=== PATIENT | female | born 1990 | race Caucasian/White ===

== ENCOUNTER 2016-08-22 19:39 | Emergency (ER) | payer SELFPAY ==
[~2016-08-22] VITALS: Ht 167.6 cm; Wt 104.0 kg
[2016-08-22 19:41] VITALS: BP 141/92; PULSE 105; RESP 16; TEMP 98.2; O2SAT 100
--- NOTE | 2016-08-22 19:54 | PD ---
Physical Exam Date Seen by Provider: Aug 22, 2016 Time Seen by Provider: 19:52 Narrative 26 yo female here for evaluation of right arm pain. History of fracture. Took off cast because felt better yesterday. has more pain. Fracture 3 weeks ago. here for pain and recasting. Vitals are stable. Awaiting bed placement. Data Data Last Documented VS Vital Signs Date Time Temp Pulse Resp B/P Pulse Ox O2 Delivery O2 Flow Rate FiO2 08/22/16 19:41 98.2 105 16 141/92 100 Room Air [facility] Medical Record Reviewed: Yes Supervised Visit with MALLIKA: Froilan Cole Aug 22, 2016 19:53
[2016-08-22] MEDS ORDERED: VERA40TA PO (21:25)
[2016-08-22] MEDS ORDERED: oxyCODONE/ACETAMINOPHEN 5 MG/325 MG TAB PO ONE (21:45)
--- NOTE | 2016-08-22 21:53 | PD ---
HPI Chief Complaint: Injury Time Seen by Provider: 21:36 Travel History International Travel<30 days: No Contact w/Intl Traveler<30days: No Traveled to known affect area: No History of Present Illness HPI 26-year-old female here for evaluation of right wrist pain. About 3 weeks ago she was diagnosed with a right distal radius fracture as well as a hand fracture in [place]. She states that she was in a bois forte when she slipped and fell. She was placed in a splint at that time. She has a follow-up appointment with local orthopedic surgeons in one week. Today the patient states that the splint became loose and was bothering her, so she decided to remove it. While doing laundry today she states that her wrist began to hurt significantly. Pain is currently mild to moderate, worse with movement and palpation. PFSH Past Medical History Medical History: Denies Significant Hx ?: Not LMP: 08-04-16 Past Surgical History Other Surgery: Yes (PYLORIC STENOSIS ) Social History Alcohol Use: No Tobacco Use: Yes (1 PPD ) Substance Use: No Allergies-Medications (Allergen,Severity, Reaction): Coded Allergies: No Known Allergies (Unverified , 08/22/16) Reported Meds & Prescriptions Reported Meds & Active Scripts Active Reported Verapamil (Verapamil HCl) 40 Mg Tab 40 Mg PO BID Review of Systems Except as stated in HPI: all other systems reviewed are Neg Physical Exam Narrative GENERAL: Well-developed, well-nourished, sitting comfortably, no apparent distress. SKIN: Focused skin assessment warm/dry. No lacerations, abrasions, or ecchymosis. CARDIOVASCULAR: Regular rate and rhythm. Bilateral distal radial pulses are brisk and equal. MUSCULOSKELETAL: Mild edema to the right distal radius/dorsal hand with limited range of motion in the right wrist secondary to pain. Right hand and fingers are neurovascularly intact with normal capillary refill. NEUROLOGICAL: Awake and alert. No obvious cranial nerve deficits. Motor grossly within normal limits. Normal speech. PSYCHIATRIC: Appropriate mood and affect; insight and judgment normal. Data Data Last Documented VS Vital Signs Date Time Temp Pulse Resp B/P Pulse Ox O2 Delivery O2 Flow Rate FiO2 08/22/16 19:41 98.2 105 16 141/92 100 Room Air Orders Wrist, Complete ([id number]) (08/22/16 ) Oxycodone-Acetamin 5-325 Mg (Percocet (08/22/16 21:45) Splint Or Brace Apply/Monitor (08/22/16 22:07) Ketorolac Inj (Toradol Inj) (08/22/16 22:30) MDM Medical Decision Making Medical Screen Exam Complete: Yes Emergency Medical Condition: Yes Differential Diagnosis Wrist fracture, wrist sprain Narrative Course Right wrist x-ray shows subacute fracture of the distal radius with vertical component extending intra-articular. Patient's right upper extremity is neurovascularly intact, and all compartments are supple. Plan is to place her right upper extremity back into a sugar tong splint. She has a follow-up upon with an orthopedist in one week. She was informed on when to return to the emergency department. She verbalizes understanding and agreement with plan. Diagnosis Primary Impression: Closed fracture of right distal radius Qualified Code: S52.501D - Closed fracture of distal end of right radius with routine healing, unspecified fracture morphology, subsequent encounter Referrals: Orthopedist 1 week Additional Instructions: Follow-up with your orthopedic surgeon in one week as scheduled. Return to the emergency department for worsening symptoms or any other concerns. Scripts Hydrocodone-Acetaminophen (Lortab)5-325 Mg Tab1 Tab PO Q6H PRN (PAIN) #6 TAB Ref 0 Prov:Jose Martin Agarwal MD 08/22/16 Disposition: 01 DISCHARGE HOME Condition: Stable Jose Martin Agarwal MD Aug 22, 2016 21:53
--- NOTE | 2016-08-22 21:59 | RADRPT ---
EXAM DATE/TIME: 08/22/2016 21:53 [facility] COMPARISON: No previous studies available for comparison. INDICATIONS : Right wrist pain, post known fracture 3 weeks. MEDICAL HISTORY : None. SURGICAL HISTORY : None. ENCOUNTER: Initial ACUITY: 3 weeks PAIN SCORE: 5/10 LOCATION: Right wrist. FINDINGS: Healing fracture distal radius in reasonable alignment without splint. CONCLUSION: Subacute fracture distal radius with vertical component extending intra-articular. Westley Lamar MD FACR on August 22, 2016 at 21:57 Board Certified Radiologist. This report was verified electronically.
[2016-08-22] MEDS ORDERED: KETOROLAC TROMETHAMINE 60 MG/2 ML (IM) VIAL IM ONE (22:30)
[2016-08-22] MEDS ORDERED: HYDR-3533 PO (22:35)
== END 2016-08-22 22:39 | disposition home or self-care (01) ==
LOC: NEPD 19:39
DX: S52.501D Unspecified fracture of the lower end of right radius, subsequent encounter for closed fracture with routine healing (principal); F17.200 Nicotine dependence, unspecified, uncomplicated; Z79.899 Other long term (current) drug therapy; W01.0XXD Fall on same level from slipping, tripping and stumbling without subsequent striking against object, subsequent encounter
CPT/HCPCS: 29125; 73110; 96372; 99284; J1885

== ENCOUNTER 2016-10-08 18:57 | Emergency (ER) | payer SELFPAY ==
[~2016-10-08] VITALS: Ht 167.6 cm; Wt 105.0 kg
[~2016-10-08 18:57] MED LIST: HYDR-3533 PO; VERA40TA PO
[2016-10-08 19:00] VITALS: BP 124/86; PULSE 89; RESP 15; TEMP 98.4; O2SAT 99
--- NOTE | 2016-10-08 20:53 | PD ---
HPI Chief Complaint: Injury Time Seen by Provider: 20:42 Travel History International Travel<30 days: No Contact w/Intl Traveler<30days: No Traveled to known affect area: No History of Present Illness HPI 26-year-old female no significant medical history presents to emergency department today for evaluation of a left great toe ingrown toenail. Patient states it has been there for the last 2-3 days, worsening, becoming more reddened and swollen. She's been soaking in Epsom salts without any resolution of symptoms. Denies any fever or chills. States the pain is constant, throbbing, 8 out of 10. Does not recall injury. She has no other symptoms to report. PFSH Past Medical History Medical History: Denies Significant Hx Immunizations Current: No Tetanus Vaccination: Unknown ?: Not Past Surgical History Other Surgery: Yes (PYLORIC STENOSIS ) Social History Alcohol Use: No Tobacco Use: Yes Substance Use: No Allergies-Medications (Allergen,Severity, Reaction): Coded Allergies: No Known Allergies (Unverified , 10/08/16) Reported Meds & Prescriptions Reported Meds & Active Scripts Active Tramadol (Tramadol HCl) 50 Mg Tab 50 Mg PO Q6H PRN 12 Days Ibuprofen 800 Mg Tab 800 Mg PO Q8H PRN Bactrim DS (Sulfamethoxazole-Trimethoprim) 800-160 Mg Tab 1 Tab PO BID Keflex (Cephalexin) 500 Mg Cap 500 Mg PO Q6H 5 Days Lortab (Hydrocodone-Acetaminophen) 5-325 Mg Tab 1 Tab PO Q6H PRN Reported Verapamil (Verapamil HCl) 40 Mg Tab 40 Mg PO BID Review of Systems Except as stated in HPI: all other systems reviewed are Neg Physical Exam Narrative GENERAL: Well-nourished, well-developed female patient in no acute distress SKIN: Focused skin assessment warm/dry. The distal feet are peeling bilaterally. The left great toenail appears to be ingrown on the medial aspect with erythema and edema surrounding the nail on the medial side. There is no fluctuance. No drainage. HEAD: Normocephalic. EYES: No scleral icterus. No injection or drainage. NECK: Supple, trachea midline. No JVD or lymphadenopathy. CARDIOVASCULAR: Regular rate area distal pulses are palpable. Cap refill is within normal limits. RESPIRATORY: Even respirations. No accessory muscle use. Data Data Last Documented VS Vital Signs Date Time Temp Pulse Resp B/P (MAP) Pulse Ox O2 Delivery O2 Flow Rate FiO2 10/08/16 22:30 10/08/16 19:00 98.4 89 15 99 Orders Orders Lidocaine 2% Inj (Xylocaine 2% Inj) (10/08/16 21:00) Bupivacaine Pf 0.5% Inj (Marcaine Pf 0.5 (10/08/16 21:00) Lidocaine 2% Inj (Xylocaine 2% Inj) (10/08/16 21:35) Ketorolac Inj (Toradol Inj) (10/08/16 22:15) Cephalexin (Keflex) (10/08/16 22:15) Sulfamet-Trimeth Ds 800-160 Mg (Bactrim (10/08/16 22:15) MDM Medical Decision Making Medical Screen Exam Complete: Yes Emergency Medical Condition: Yes Medical Record Reviewed: Yes Differential Diagnosis Ingrown toenail versus cellulitis versus paronychia versus abscess Narrative Course 26 year old female presents to the emergency department for evaluation. Physical exam is consistent with an ingrown toenail of the left great toe. Digital block followed by partial nail avulsion is complete without difficulty. Patient tolerated this well. She has provided her first dose of antibiotic here. She is counseled on care and agrees to return immediately with any acute worsening of symptoms. Procedures Procedure Narrative Verbal consent was obtained prior to procedure Digital block of the left great toe is complete after prepping the toe with Betadine. A total of 2 mL 0.5% bupivacaine and 2 mL of 2% lidocaine without epinephrine is used to obtain adequate anesthesia via digital block. Sterile scissors are used to wedge the medial side of the Great Toenail up, removing the wedge. Pt tolerated this well. Dressing is applied. Diagnosis Primary Impression: Ingrown left big toenail Additional Impression: Cellulitis of great toe, left Referrals: Breakdown Person Primary Care Physician Patient Instructions: General Instructions, Partial Nail Avulsion for Ingrown Nail (DC) Additional Instructions: Elevate to reduce pain and swelling Epsom salt soaks 2-3 times a day Start antibiotics tomorrow morning and take until all gone Follow up with your primary care provider Return to ED with acute worsening of symptoms Med/Other Pt SpecificInfo: Prescription(s) given Scripts Tramadol (Tramadol) 50 Mg Tab 50 MG PO Q6H Y for PAIN GREATER THAN 6 for 12 Days, TAB 0 Refills Prov: Lynnette Villarreal 10/08/16 Ibuprofen (Ibuprofen) 800 Mg Tab 800 MG PO Q8H Y for PAIN SCALE 1 TO 10, #30 TAB 0 Refills Prov: Lynnette Villarreal 10/08/16 Sulfamethoxazole-Trimethoprim (Bactrim DS) 800-160 Mg Tab 1 TAB PO BID for Infection, #20 TAB 0 Refills Prov: Lynnette Villarreal 10/08/16 Cephalexin (Keflex) 500 Mg Cap 500 MG PO Q6H for Infection for 5 Days, CAP 0 Refills Prov: Lynnette Villarreal 10/08/16 Disposition: 01 DISCHARGE HOME Condition: Stable Lynnette Villarreal Oct 08, 2016 20:53
[2016-10-08] MEDS ORDERED: BUPIVACAINE HCL PF 0.5% 10 ML VIAL INFIL ONE (21:00)
[2016-10-08] MEDS ORDERED: LIDOCAINE HCL 2% 20 ML VIAL INFIL ONE (21:00)
[2016-10-08] MEDS ORDERED: LIDOCAINE HCL 2% 50 ML VIAL ONE (21:35)
[2016-10-08] MEDS ORDERED: CEPHALEXIN MONOHYDRATE 500 MG CAP PO ONE (22:15)
[2016-10-08] MEDS ORDERED: KETOROLAC TROMETHAMINE 60 MG/2 ML (IM) VIAL IM ONE (22:15)
[2016-10-08] MEDS ORDERED: SULFAMETHOXAZOLE-TRIMETHOPRIM DS 800-160 MG TAB PO ONE (22:15)
[2016-10-08] MEDS ORDERED: BACT800T5 PO (22:19)
[2016-10-08] MEDS ORDERED: IBUP800T23 PO (22:19)
[2016-10-08] MEDS ORDERED: TRAM50TA PO (22:19)
[2016-10-08] MEDS ORDERED: CEPH-460 PO (22:19)
== END 2016-10-08 22:47 | disposition home or self-care (01) ==
LOC: NEPD 18:57
DX: L60.0 Ingrowing nail (principal); L03.032 Cellulitis of left toe
CPT/HCPCS: 11765; 64450; 96372; 99284; J1885

== ENCOUNTER 2016-10-23 13:21 | Inpatient (IN) | payer SELFPAY ==
[~2016-10-23] VITALS: Ht 168.9 cm; Wt 95.3 kg
[~2016-10-23 13:21] MED LIST changes: +BACT800T5 PO; +CEPH-460 PO; +IBUP800T23 PO; +TRAM50TA PO
[2016-10-23 13:23] VITALS: BP 127/63; PULSE 107; RESP 16; TEMP 98.4; O2SAT 98
[2016-10-23 15:36] VITALS: BP 114/67; PULSE 100; RESP 20; O2SAT 98
[2016-10-23] MEDS ORDERED: SUMA6P SQ (15:53)
--- NOTE | 2016-10-23 17:29 | PD ---
HPI Chief Complaint: Psychiatric Symptoms Time Seen by Provider: 16:30 Travel History International Travel<30 days: No Contact w/Intl Traveler<30days: No Traveled to known affect area: No History of Present Illness HPI Patient is a 26 year old female presenting to the emergency Department voluntarily for psychiatric evaluation. Patient denies suicidal or homicidal ideations. Patient reports a history of opioid dependency, she states that she has not been sleeping well for the past several weeks. Specifically she has not slept for 5 days. She reports visual hallucinations since 11 PM last night. Patient's was able to encourage her to be evaluated. She states that Lortab was her drug of choice, initially stated that she did not use any other drugs but when she was asked to provide a urine sample she confessed that there may be "other things" sound in her urine. Patient reports a history of stage II cervical cancer currently on chemotherapy with her last treatment in August. 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 She also reports seeing a neurologist for cluster headaches. She has no other complaints at this time. PFSH Past Medical History Hx Anticoagulant Therapy: No Cardiovascular Problems: No Chemotherapy: Yes (03/2016) Cerebrovascular Accident: No Diabetes: No Psychiatric: Yes (MDD) Respiratory: No Immunizations Current: No ?: Not LMP: 10/23/16 Ovarian Cysts: Yes (STATES CURRENTLY ON CHEMO FOR STAGE TWO OVARIAN CA) Past Surgical History Hysterectomy: No Other Surgery: Yes (PYLORIC STENOSIS ) Social History Alcohol Use: No Tobacco Use: Yes Substance Use: No Allergies-Medications (Allergen,Severity, Reaction): Coded Allergies: No Known Allergies (Unverified , 10/23/16) Reported Meds & Prescriptions Reported Meds & Active Scripts Active Tramadol (Tramadol HCl) 50 Mg Tab 50 Mg PO Q6H PRN 12 Days Ibuprofen 800 Mg Tab 800 Mg PO Q8H PRN Bactrim DS (Sulfamethoxazole-Trimethoprim) 800-160 Mg Tab 1 Tab PO BID Keflex (Cephalexin) 500 Mg Cap 500 Mg PO Q6H 5 Days Lortab (Hydrocodone-Acetaminophen) 5-325 Mg Tab 1 Tab PO Q6H PRN Reported Verapamil (Verapamil HCl) 40 Mg Tab 40 Mg PO BID Imitrex Inj (Sumatriptan Succinate) 6 Mg/0.5 Ml Inj 6 Mg SQ ONCE PRN May repeat dose in 1 hour if needed. Review of Systems Except as stated in HPI: all other systems reviewed are Neg Neurologic: Positive: Other (insomnia) Psychiatric: Positive: Other (hallucinations) Physical Exam Narrative GENERAL: Overweight, well-developed, alert female. Resting comfortably in no acute distress. SKIN: Warm and dry. HEAD: Atraumatic. Normocephalic. EYES: Pupils equal and round. No scleral icterus. No injection or drainage. ENT: No nasal bleeding or discharge. Mucous membranes pink and moist. NECK: Trachea midline. No JVD. CARDIOVASCULAR: Regular rate and rhythm. RESPIRATORY: No accessory muscle use. Clear to auscultation. Breath sounds equal bilaterally. GASTROINTESTINAL: Abdomen soft, non-tender, nondistended. Hepatic and splenic margins not palpable. MUSCULOSKELETAL: Extremities without clubbing, cyanosis, or edema. No obvious deformities. NEUROLOGICAL: Awake and alert. No obvious cranial nerve deficits. Motor grossly within normal limits. Five out of 5 muscle strength in the arms and legs. Normal speech. PSYCHIATRIC: Appropriate mood and affect; insight and judgment normal. Data Data Last Documented VS Vital Signs Date Time Temp Pulse Resp B/P (MAP) Pulse Ox O2 Delivery O2 Flow Rate FiO2 10/23/16 15:36 100 20 114/67 (83) 98 Room Air 10/23/16 13:23 98.4 Orders Orders Complete Blood Count With Diff (10/23/16 16:29) Comprehensive Metabolic Panel (10/23/16 16:29) Urinalysis - C+S If Indicated (10/23/16 16:29) Psych Screen (10/23/16 16:29) Drug Screen, Random Urine (10/23/16 16:29) Trazodone (Desyrel) (10/23/16 18:00) Labs Laboratory Tests Test 10/23/16 17:30 10/23/16 17:41 Urine Color YELLOW Urine Turbidity CLEAR Urine pH 7.5 Urine Specific [place] 1.003 Urine Protein NEG mg/dL Urine Glucose (UA) NEG mg/dL Urine Ketones NEG mg/dL Urine Occult Blood MOD Urine Nitrite NEG Urine Bilirubin NEG Urine Urobilinogen LESS THAN 2.0 MG/DL Urine Leukocyte Esterase TRACE Urine RBC 2 /hpf Urine WBC 1 /hpf Urine Squamous Epithelial Cells 1 /hpf Urine Bacteria RARE /hpf Microscopic Urinalysis Comment CULT NOT INDICATED Urine Opiates Screen POS Urine Barbiturates Screen NEG Urine Amphetamines Screen NEG Urine Benzodiazepines Screen POS Urine Cocaine Screen NEG Urine Cannabinoids Screen NEG White Blood Count 7.0 TH/MM3 Red Blood Count 3.52 MIL/MM3 Hemoglobin 11.4 GM/DL Hematocrit 32.0 % Mean Corpuscular Volume 91.0 FL Mean Corpuscular Hemoglobin 32.4 PG Mean Corpuscular Hemoglobin Concent 35.6 % Red Cell Distribution Width 14.5 % Platelet Count 271 TH/MM3 Mean Platelet Volume 8.3 FL Neutrophils (%) (Auto) 47.3 % Lymphocytes (%) (Auto) 35.2 % Monocytes (%) (Auto) 11.3 % Eosinophils (%) (Auto) 4.9 % Basophils (%) (Auto) 1.3 % Neutrophils # (Auto) 3.3 TH/MM3 Lymphocytes # (Auto) 2.5 TH/MM3 Monocytes # (Auto) 0.8 TH/MM3 Eosinophils # (Auto) 0.3 TH/MM3 Basophils # (Auto) 0.1 TH/MM3 CBC Comment DIFF FINAL Differential Comment Blood Urea Nitrogen 3 MG/DL Creatinine 0.68 MG/DL Random Glucose 82 MG/DL Total Protein 7.0 GM/DL Albumin 3.3 GM/DL Calcium Level 8.9 MG/DL Alkaline Phosphatase 56 U/L Aspartate Amino Transf (AST/SGOT) 14 U/L Alanine Aminotransferase (ALT/SGPT) 22 U/L Total Bilirubin 0.5 MG/DL Sodium Level 139 MEQ/L Potassium Level 3.5 MEQ/L Chloride Level 105 MEQ/L Carbon Dioxide Level 26.9 MEQ/L Anion Gap 7 MEQ/L Estimat Glomerular Filtration Rate 105 ML/MIN [facility] Medical Decision Making Medical Screen Exam Complete: Yes Emergency Medical Condition: Yes Interpretation(s) Laboratory Tests Test 10/23/16 17:30 10/23/16 17:41 Urine Color YELLOW Urine Turbidity CLEAR Urine pH 7.5 Urine Specific [place] 1.003 Urine Protein NEG mg/dL Urine Glucose (UA) NEG mg/dL Urine Ketones NEG mg/dL Urine Occult Blood MOD Urine Nitrite NEG Urine Bilirubin NEG Urine Urobilinogen LESS THAN 2.0 MG/DL Urine Leukocyte Esterase TRACE Urine RBC 2 /hpf Urine WBC 1 /hpf Urine Squamous Epithelial Cells 1 /hpf Urine Bacteria RARE /hpf Microscopic Urinalysis Comment CULT NOT INDICATED Urine Opiates Screen POS Urine Barbiturates Screen NEG Urine Amphetamines Screen NEG Urine Benzodiazepines Screen POS Urine Cocaine Screen NEG Urine Cannabinoids Screen NEG White Blood Count 7.0 TH/MM3 Red Blood Count 3.52 MIL/MM3 Hemoglobin 11.4 GM/DL Hematocrit 32.0 % Mean Corpuscular Volume 91.0 FL Mean Corpuscular Hemoglobin 32.4 PG Mean Corpuscular Hemoglobin Concent 35.6 % Red Cell Distribution Width 14.5 % Platelet Count 271 TH/MM3 Mean Platelet Volume 8.3 FL Neutrophils (%) (Auto) 47.3 % Lymphocytes (%) (Auto) 35.2 % Monocytes (%) (Auto) 11.3 % Eosinophils (%) (Auto) 4.9 % Basophils (%) (Auto) 1.3 % Neutrophils # (Auto) 3.3 TH/MM3 Lymphocytes # (Auto) 2.5 TH/MM3 Monocytes # (Auto) 0.8 TH/MM3 Eosinophils # (Auto) 0.3 TH/MM3 Basophils # (Auto) 0.1 TH/MM3 CBC Comment DIFF FINAL Differential Comment Blood Urea Nitrogen 3 MG/DL Creatinine 0.68 MG/DL Random Glucose 82 MG/DL Total Protein 7.0 GM/DL Albumin 3.3 GM/DL Calcium Level 8.9 MG/DL Alkaline Phosphatase 56 U/L Aspartate Amino Transf (AST/SGOT) 14 U/L Alanine Aminotransferase (ALT/SGPT) 22 U/L Total Bilirubin 0.5 MG/DL Sodium Level 139 MEQ/L Potassium Level 3.5 MEQ/L Chloride Level 105 MEQ/L Carbon Dioxide Level 26.9 MEQ/L Anion Gap 7 MEQ/L Estimat Glomerular Filtration Rate 105 ML/MIN Vital Signs Date Time Temp Pulse Resp B/P (MAP) Pulse Ox O2 Delivery O2 Flow Rate FiO2 10/23/16 15:36 100 20 114/67 (83) 98 Room Air 10/23/16 13:23 98.4 107 16 127/63 (84) 98 Differential Diagnosis Mood disorder versus substance abuse versus metabolic abnormality versus UTI versus other Narrative Course Patient is a 26 year old female presenting to our voluntarily for psychiatric evaluation. She has no physical complaints today. Patient has been experiencing insomnia, hallucinations for the last several weeks. She does admit to illicit drug use but would not confess as to what exactly she was using. Her drug of choice is Lortab. Her vital signs are stable. Mental health screening discussed with the patient. Psychiatric screen ordered. Labs reviewed, no acute abnormalities identified. Patient's urine drug screen is positive for benzos and opiates. Patient is medically cleared for psychiatric evaluation. Diagnosis Primary Impression: Medical clearance for psychiatric admission Condition: Stable Elise Gutierrez Oct 23, 2016 17:29
[2016-10-23 17:56] LABS: AUTOMATED NEUTROPHIL # 3.3 TH/MM3 (1.8-7.7); BASOPHIL # 0.1 TH/MM3 (0-0.2); BASOPHIL % 1.3 % (0.0-2.0); EOSINOPHIL # 0.3 TH/MM3 (0-0.4); EOSINOPHIL % 4.9 % (0.0-4.0); HEMO FLAGS DIFF FINAL; LYMPH % 35.2 % (9.0-44.0); LYMPHOCYTE # 2.5 TH/MM3 (1.0-4.8); MEAN CORPUSCULAR HEMOGLOBIN 32.4 PG (27.0-34.0); MEAN CORPUSCULAR HGB CONC 35.6 % (32.0-36.0); MONO % 11.3 % (0.0-8.0); NEUT % 47.3 % (16.0-70.0); PLATELET COUNT 271 TH/MM3 (150-450); RED BLOOD COUNT 3.52 MIL/MM3 (4.00-5.30); RED CELL DISTRIBUTION WIDTH 14.5 % (11.6-17.2)
[2016-10-23 17:58] LABS: BACTERIA, URINE RARE /hpf; BLOOD, URINE MOD (NEG); COMMENT (UR) CULT NOT INDICATED; CULTURE IF INDICATED CULT NOT INDICATED; GLUCOSE,URINE NEG (NEG); KETONE, URINE NEG (NEG); NITRITE,URINE NEG (NEG); PH, URINE 7.5 (5.0-8.5); SQUAMOUS EPITHELIAL CELL URINE 1 /hpf (0-5); URINE COLOR YELLOW (YELLW/STRAW)
[2016-10-23] MEDS ORDERED: traZODone HCL 100 MG TAB PO ONE (18:00)
[2016-10-23 18:08] LABS: ALT (GPT) 22 U/L (10-53); ANION GAP 7 MEQ/L (5-15); AST (GOT) 14 U/L (15-37); BICARBONATE 26.9 MEQ/L (21.0-32.0); BLOOD UREA NITROGEN 3 MG/DL (7-18); CHLORIDE 105 MEQ/L (98-107); GLOMERULAR FILTRATION RATE 105 ML/MIN (>89); POTASSIUM 3.5 MEQ/L (3.5-5.1); SODIUM (NA) 139 MEQ/L (136-145)
[2016-10-23 18:10] LABS: ALKALINE PHOSPHATASE 56 U/L (45-117); TOTAL BILIRUBIN ADULT 0.5 MG/DL (0.2-1.0)
[2016-10-23 18:36] VITALS: BP 115/70; PULSE 98; RESP 18; O2SAT 99
[2016-10-23] MEDS ORDERED: OLANZapine IM 10 MG VIAL IM ONE (22:15)
[2016-10-24] MEDS ORDERED: diphenhydrAMINE HCL 50 MG/ML VIAL IM ONE (03:15)
[2016-10-24] MEDS ORDERED: OLANZapine IM 10 MG VIAL IM ONE (03:15)
[2016-10-24 11:06] VITALS: BP 139/63; PULSE 107; RESP 18; O2SAT 97
--- NOTE | 2016-10-24 13:20 | PD ---
History of Present Illness Chief Complaint: Psychiatric Symptoms Time Seen by Provider: 13:00 Travel History International Travel<30 Days: No Contact w/Intl Traveler<30days: No Known affected area: No Legal Status Legal Status: Lesvia Lakhani Act Signed By: Lesvia Acosta Comment: HELEN Harkins History of Present Illness: History of Present Illness HPI Patient is a 26 year old female with reported history of depression, history of opioid dependency, stage II cervical cancer, who presents to the emergency Department voluntarily for psychiatric evaluation. She is accompanied by her who reports that she has been hallucinating and that she has not slept in 5 days. At the time of the psychiatric screen she presented as " cooperative,with decreased concentration and loose associations" . Patient was monitored in J pod and placed on SMA list for treatment. During the night she did not sleep and was more disorganized as well as restless. She required ETO during the night consisting of Zyprexa as well as Benadryl. This morning the patient is restless, pacing in her room, taking her clothes off, responding to internal stimuli, grabbing at objects that were not there. She tells me " right now I see a table here but I know it's not really there". Her speech is illogical and tangential . She talks about her mother dying on april 27, needing to get ready for a performance, complaining about her toes being swollen> I am unable to obtain any clinical history from her. She was given Geodon and Ativan this afternoon as she became more agitated and was attempting to leave the unit. Current toxicology positive for benzos as well as opiates. I have called the patient's at [phone] to obtain further clinical information . Unable to leave message as mailbox is full. [facility] Past Medical History Hx Anticoagulant Therapy: No Cardiovascular Problems: No Chemotherapy: Yes (03/2016) Cerebrovascular Accident: No Diabetes: No Psychiatric: Yes (MDD) Respiratory: No Immunizations Current: No ?: Not LMP: 10/23/16 Ovarian Cysts: Yes (STATES CURRENTLY ON CHEMO FOR STAGE TWO OVARIAN CA) Past Surgical History Hysterectomy: No Other Surgery: Yes (PYLORIC STENOSIS ) Psychiatric History Psychiatric History Hx Psychiatric Treatment: Per Pt diagnosis "Severe Depression ". Has been on Zoloft in the past. History of Inpatient Treatment: No Guns or firearms in home: No Social History April 30, 2016. Sophomore at [employer] [facility] [place] H[place] Alcohol Use: No Hx Tobacco Use: Yes Hx Substance Use: No Substance Use Type: Nicotine/Cigarettes, Synth Opiates-Pain Pills Hx of Substance Use Treatment: No Family Psychiatric History Unable to obtain Allergies-Medications (Allergen,Severity, Reaction): Coded Allergies: No Known Allergies (Unverified , 10/23/16) Reported Meds & Prescriptions Reported Meds & Active Scripts Active Tramadol (Tramadol HCl) 50 Mg Tab 50 Mg PO Q6H PRN 12 Days Ibuprofen 800 Mg Tab 800 Mg PO Q8H PRN Bactrim DS (Sulfamethoxazole-Trimethoprim) 800-160 Mg Tab 1 Tab PO BID Keflex (Cephalexin) 500 Mg Cap 500 Mg PO Q6H 5 Days Lortab (Hydrocodone-Acetaminophen) 5-325 Mg Tab 1 Tab PO Q6H PRN Reported Verapamil (Verapamil HCl) 40 Mg Tab 40 Mg PO BID Imitrex Inj (Sumatriptan Succinate) 6 Mg/0.5 Ml Inj 6 Mg SQ ONCE PRN May repeat dose in 1 hour if needed. Review of Systems ROS Limitations: Psychotic Exam Alert: Yes [place]: Person Mood: Agitated, Other (restless) Affect: Other (labile) Speech: Clear, Illogical, Flight of Ideas Eye Contact: Indirect Memory Intact: Comment (unable to test) Hallucinations: Auditory Delusions: No Suicidal: Ideation (denied) Homicidal: Ideation (deneis) Insight/Judgement poor. impaired. [facility] Medical Decision Making Medical Record Reviewed: Yes Assessment/Plan Patient is a 26 year old female with reported history of depression, history of opioid dependency, stage II cervical cancer, who presents to the emergency Department voluntarily for psychiatric evaluation. She is accompanied by her who reports that she has been hallucinating and that she has not slept in 5 days. Patient became increasingly psychotic and agitated and experiencing auditory and visual hallucinations. It is unclear as to etiology of this psychotic episode as little information is available and patient is unable to provide cogent history.. At this time the patient requires inpatient treatment for further evaluation to determine the etiology of current psychotic episode and to maintain safety. Orders Orders Complete Blood Count With Diff (10/23/16 16:29) Comprehensive Metabolic Panel (10/23/16 16:29) Urinalysis - C+S If Indicated (10/23/16 16:29) Psych Screen (10/23/16 16:29) Drug Screen, Random Urine (10/23/16 16:29) Trazodone (Desyrel) (10/23/16 18:00) Olanzapine Inj (Zyprexa Inj) (10/23/16 22:15) Olanzapine Inj (Zyprexa Inj) (10/24/16 03:15) Diphenhydramine Inj (Benadryl Inj) (10/24/16 03:15) Diet Regular Basic (10/24/16 Breakfast) Diet Regular Basic (10/24/16 Lunch) Results Vital Signs Date Time Temp Pulse Resp B/P (MAP) Pulse Ox O2 Delivery O2 Flow Rate FiO2 10/24/16 11:06 107 18 139/63 (88) 97 Room Air 10/24/16 05:23 98 12 10/24/16 02:25 10/23/16 18:36 98 18 115/70 (85) 99 Room Air 10/23/16 15:36 100 20 114/67 (83) 98 Room Air 10/23/16 13:23 98.4 107 16 127/63 (84) 98 Laboratory Tests Test 10/23/16 17:30 10/23/16 17:41 Urine Color YELLOW Urine Turbidity CLEAR Urine pH 7.5 Urine Specific [place] 1.003 Urine Protein NEG Urine Glucose (UA) NEG Urine Ketones NEG Urine Occult Blood MOD Urine Nitrite NEG Urine Bilirubin NEG Urine Urobilinogen LESS THAN 2.0 Urine Leukocyte Esterase TRACE Urine RBC 2 Urine WBC 1 Urine Squamous Epithelial Cells 1 Urine Bacteria RARE Microscopic Urinalysis Comment CULT NOT INDICATED Urine Opiates Screen POS Urine Barbiturates Screen NEG Urine Amphetamines Screen NEG Urine Benzodiazepines Screen POS Urine Cocaine Screen NEG Urine Cannabinoids Screen NEG White Blood Count 7.0 Red Blood Count 3.52 Hemoglobin 11.4 Hematocrit 32.0 Mean Corpuscular Volume 91.0 Mean Corpuscular Hemoglobin 32.4 Mean Corpuscular Hemoglobin Concent 35.6 Red Cell Distribution Width 14.5 Platelet Count 271 Mean Platelet Volume 8.3 Neutrophils (%) (Auto) 47.3 Lymphocytes (%) (Auto) 35.2 Monocytes (%) (Auto) 11.3 Eosinophils (%) (Auto) 4.9 Basophils (%) (Auto) 1.3 Neutrophils # (Auto) 3.3 Lymphocytes # (Auto) 2.5 Monocytes # (Auto) 0.8 Eosinophils # (Auto) 0.3 Basophils # (Auto) 0.1 CBC Comment DIFF FINAL Differential Comment Blood Urea Nitrogen 3 Creatinine 0.68 Random Glucose 82 Total Protein 7.0 Albumin 3.3 Calcium Level 8.9 Alkaline Phosphatase 56 Aspartate Amino Transf (AST/SGOT) 14 Alanine Aminotransferase (ALT/SGPT) 22 Total Bilirubin 0.5 Sodium Level 139 Potassium Level 3.5 Chloride Level 105 Carbon Dioxide Level 26.9 Anion Gap 7 Estimat Glomerular Filtration Rate 105 Diagnosis Primary Impression: Medical clearance for psychiatric admission Additional Impression: Psychosis Admitting Information Admitting Physician Requests: Admit Condition: Stable Problem Qualifiers Additional Impression: Psychosis Qualified Codes: F29 - Unspecified psychosis not due to a substance or known physiological condition Clarissa GrewalP Oct 24, 2016 13:20
[2016-10-24] MEDS ORDERED: LORazepam 2 MG/ML VIAL ONE (13:33)
[2016-10-24] MEDS ORDERED: ZIPRASIDONE MESYLATE 20 MG VIAL IM ONE (13:34)
[2016-10-24] MEDS: ZIPRASIDONE MESYLATE 20 MG VIAL IM ONE ×2 (13:45→13:50)
[2016-10-24] MEDS: LORazepam 2 MG/ML VIAL IM ONE ×2 (13:59→14:00)
[2016-10-24] MEDS ORDERED: ALUMINUM/MAGNESIUM/SIMETH 30 ML CUP PO PRN (17:15)
[2016-10-24] MEDS ORDERED: MAGNESIUM HYDROXIDE SUSP 30 ML CUP PO PRN (17:15)
[2016-10-24] MEDS ORDERED: ACETAMINOPHEN 325 MG TAB PO PRN (17:15)
[2016-10-24 17:52] VITALS: BP 103/56; PULSE 104; RESP 20; O2SAT 99
[2016-10-24 18:29] VITALS: BP 103/56; PULSE 104; RESP 20; O2SAT 99
[2016-10-24 18:30] VITALS: BP 116/76; PULSE 108; RESP 18; TEMP 97.7; O2SAT 100
[2016-10-24] MEDS: VERAPAMIL HCL 40 MG TAB PO SCH (21:00)
[2016-10-25 06:10] VITALS: BP 129/62; PULSE 105; RESP 18; TEMP 97.3; O2SAT 100
[2016-10-25] MEDS: VERAPAMIL HCL 40 MG TAB PO SCH (08:55)
--- NOTE | 2016-10-25 09:17 | HHI.HP ---
Provisional Diagnosis Admission Date Oct 24, 2016 at 17:13 [place] I. 1. Insomnia 2. Visual hallucinations Rule-out Mood disorder, Substance, or GMC as etiology for above [place] II. Deferred Certification of Person's Competence To Provide Express and Informed Consent I have personally examined Radha Gregg , a person being served at [facility] on, Oct 25, 2016 09:16. Express and informed consent means consent voluntarily given in writing, by a competent person, after sufficient explanation and disclosure of the subject matter involved to enable the person to make a knowing and willful decision without any element of force, fraud, deceit, duress, or other form of constraint or coercion. This person is 18 years of age or older, is not now known to be incompetent to consent to treatment with a guardian advocate, and does not have a health care surrogate or proxy currently making medical treatment decisions. I have found this person to be one of the following: [x] Competent to provide express and informed consent, as defined above, for voluntary admission to this facility and is competent to provide express and informed consent for treatment. He/she has the consistent capacity to make well reasoned, willful, and knowing decisions concerning his or her medical or mental health treatment. The person fully and consistently understands the purpose of the admission for examination/placement and is fully capable of personally exercising all rights assured [place] Incompetent to provide express and informed consent to voluntary admission, and this is incompetent to provide express and informed consent to treatment. The person must be transferred to involuntary status and a petition for a guardian advocate filed with the Circuit Court. [] Refusing to provide express and informed consent to voluntary admission but is competent to provide express and informed consent for treatment. The person must be discharged or transferred to involuntary status. Form shall be completed within 24 hours of a person's arrival at the receiving facility and filed in the clinical record of each person: 1. Admitted on a voluntary basis 2. Permitted to provide express and informed consent to his/her own treatment 3. Allowed to transfer from involuntary to voluntary status 4. Prior to permitting a person to consent to his or her own treatment after having been previously found incompetent to consent to treatment. History of Present Illness Capacity: Has Capacity HPI Ms. Gregg is a 26-year-old female with a history of depression previously treated on an ambulatory basis by her general practitioner who presented voluntarily to the ED for evaluation of insomnia x 5 days. She was seen by the psychiatric nurse practitioner, who noted the patient was responding to internal stimuli. Patient was placed under the Lakhani act and admitted to the inpatient psychiatric unit. Reviewing the electronic medical record, I see no psychiatric contact within our system. Of note, patient has a history of cervical cancer and cluster headaches. Patient seen and examined with nurse. Chart reviewed. Case discussed with nursing staff. Patient was noted in nursing notes to have been somewhat confused but no real behavioral problem on the unit. There has been no evidence of any suicidality or violence on the inpatient unit. She slept 7 hours overnight. On my exam, patient is requesting discharge from the inpatient psychiatric unit. She says that, prior to admission, she had been sleeping poorly for no reason that she could discern for several days. In the setting of this insomnia, patient reports that she began to experience visual hallucinations. She reports that, having gotten a good night's rest overnight, her VH are resolved. She denies audiovisual hallucinations at this time. She denies any suicidal or homicidal ideation, intent or plan on direct questioning and contracts for safety. She does admit to having been somewhat paranoid in the ER but attributes this to the setting of the psychiatric emergency room, which does not seem unreasonable in context, and I can elicit no delusional material now. No current depressive or hypomanic/manic symptoms. She does seem a little confused, still, although her mental status testing is fairly intact, see below. The remainder of the psychiatric ROS is negative. Past psychiatric history: The patient reports a history of depression previously treated by her general practitioner with Zoloft, which she subsequently discontinued because it exacerbated her cluster headaches. This was apparently some time ago. She denies any history of psychiatric admissions or suicide attempts. She is not currently under the care of a psychiatrist. I endeavored with patient's permission to obtain collateral from the patient's at the number listed in EMR on 3 separate occasions today, at ~09:30, ~ 11:30 and 12:30. He did not answer, and I could not leave a VM as his voicemail box is full. Review of Systems Except as stated in HPI: all other systems reviewed are Neg Past Psych History Psychological trauma history No reported trauma history to me Violence risk - others (6 mos) Lower imminent risk. Denies HI. No known history of violence. Denies any access to guns or firearms. No evidence of unstable mental illness as defined under the Lakhani act that might confer risk for violence. Violence risk - self (6 mos) Lower imminent risk. Denies SI. Denies history of SA. No reported FH of SA. Denies access to guns. No evidence of unstable mental illness as defined under the Lakhani act that might confer risk for suicide. Substance Abuse History Drugs/Alcohol past 12 months Patient maintains that until very recently she had been clean and sober x 18 months. She does admit to recent use of her friend's Xanax to help with sleep, reportedly to good effect. She also reports use of Lortab for a broken wrist. She is active in [employer] and has a sponsor, she says. Past Family Social History Coded Allergies: No Known Allergies (Unverified , 10/23/16) Past Medical History Includes a history of cervical cancer and cluster headaches as well as a recent history of broken wrist per patient. Active Scripts Tramadol (Tramadol) 50 Mg Tab, 50 MG PO Q6H Y for PAIN GREATER THAN 6 for 12 Days, TAB 0 Refills Prov:Lynnette Villarreal 10/08/16 Ibuprofen (Ibuprofen) 800 Mg Tab, 800 MG PO Q8H Y for PAIN SCALE 1 TO 10, #30 TAB 0 Refills Prov:Lynnette Villarreal 10/08/16 Sulfamethoxazole-Trimethoprim (Bactrim DS) 800-160 Mg Tab, 1 TAB PO BID for Infection, #20 TAB 0 Refills Prov:Lynnette Villarreal 10/08/16 Cephalexin (Keflex) 500 Mg Cap, 500 MG PO Q6H for Infection for 5 Days, CAP 0 Refills Prov:Lynnette Villareral 10/08/16 Hydrocodone-Acetaminophen (Lortab) 5-325 Mg Tab, 1 TAB PO Q6H Y for PAIN, #6 TAB 0 Refills Prov:Jose Martin Agarwal MD 08/22/16 Reported Medications Sumatriptan Inj (Imitrex Inj) 6 Mg/0.5 Ml Inj, 6 MG SQ ONCE Y for MIGRAINE HEADACHE, VIAL 0 Refills May repeat dose in 1 hour if needed. 10/23/16 Verapamil (Verapamil) 40 Mg Tab, 40 MG PO BID, #60 TAB 0 Refills 08/22/16 Current Medications Medications (Trade) Dose Ordered Sig/Sherri Route Start Time Stop Time Status Last Admin (Isoptin) 40 mg BID PO 10/24/16 21:00 10/25/16 08:55 (Tylenol) 650 mg Q4H PRN PO 10/24/16 17:15 10/25/16 01:44 (Milk Of Magnesia Liq) 30 ml DAILY PRN PO 10/24/16 17:15 (Mag-Al Plus Susp Liq) 30 ml Q6H PRN PO 10/24/16 17:15 Family History Patient denies any family history of mental illness Social History Patient reports that her mother in April. She reports that she has been with her for 11 years but the 2 were only shortly before her mother's passing. She has no children. She has an associates degree and is working on a bachelor's degree in biology from the [employer] with hopes of becoming a automation operator. She denies any history. Denies any active legal issues. Denies any history of violent crime. Denies any access to guns or firearms. No particular sikhism or spiritual beliefs. Patient's Strengths (min. 2) Able to access clinical care. Verbally fluent. Physical Exam Physical exam completed by ED provider. On my examination today, the patient appears to be in no acute physical distress. No motor abnormalities noted. No signs of withdrawal noted. Labs and vitals reviewed: Vital Signs Vital Signs Date Time Temp Pulse Resp B/P (MAP) Pulse Ox O2 Delivery O2 Flow Rate FiO2 10/25/16 06:10 97.3 105 18 129/62 (84) 100 10/24/16 18:29 Room Air Lab Results Item Value Date Time White Blood Count 7.0 TH/MM3 10/23/16 1741 Hemoglobin 11.4 GM/DL L 10/23/16 174 Platelet Count 271 TH/MM3 10/23/16 174 Sodium Level 139 MEQ/L 10/23/16 174 Potassium Level 3.5 MEQ/L 10/23/16 174 Chloride Level 105 MEQ/L 10/23/16 174 Carbon Dioxide Level 26.9 MEQ/L 10/23/16 1741 Blood Urea Nitrogen 3 MG/DL L 10/23/16 1741 Creatinine 0.68 MG/DL 10/23/16 1741 Aspartate Amino Transf (AST/SGOT) 14 U/L L 10/23/16 1741 Alanine Aminotransferase (ALT/SGPT) 22 U/L 10/23/16 1741 Alkaline Phosphatase 56 U/L 10/23/16 1741 Random Glucose 82 MG/DL 10/23/16 1741 Urine Opiates Screen POS H 10/23/16 1730 Urine Benzodiazepines Screen POS H 10/23/16 1730 UA results reviewed. Mental Status Examination Registration is 3 out of 3 in recall is 3 out of 3 at 5 minutes. Patient is oriented to person, place and date. She struggles with serial sevens but is able to spell the word world forward and backward with only 1 error. She is able to name 2 items and repeat a phrase. Appearance In hospital gown. Fairly well groomed and maintaining basic hygiene. Appears to be attending to basic needs on the unit. Speech: Unremarkable Orientation: x3 Memory: Unremarkable Thought Process: Circumstantial Thought Content: Unremarkable Language unremarkable Fund of Knowledge average Hallucination Type: None (Denies AVH at this time) Attention and Concentration: Other (Fair) Suicidal Ideation: No Previous Suicide Attempts: No Homicidal Ideation: No Previous Homicide Attempts: No Insight: Poor Judgment: Poor Affect: Other (Somewhat blunted) Mood: Other (Denies issues with low mood/elevated mood) Motor Activity: Normal gait Assessment & Plan Problem List: (1) Insomnia, transient ICD Codes: F51.02 - Adjustment insomnia (2) Visual hallucinations ICD Codes: R44.1 - Visual hallucinations Assessment & Plan This is a 26-year-old female with psychiatric history as detailed above who is presently admitted to the inpatient psychiatric unit under a Lakhani act. Patient has slept overnight and reports complete resolution of visual hallucinations. She denies audiovisual hallucinations at this time. She denies any suicidal or homicidal ideation, intent or plan and contracts for safety. There is no evidence of any severely unstable mental illness as defined under the Lakhani act on my examination at this time. She appears to be attending to her basic needs. Synthesizing this information and weighing the acute, chronic, and protective factors and based on the evidence available to me at this time, I hog raiser that the patient does not meet the Lakhani Act criteria. I have very strongly recommended to the patient that she remain on the unit voluntarily for further observation, but she has declined. I have explained to patient that her presenting constellation of symptoms could be due to a primary mental illness, such as BPAD to name an example, could be substance related, or could be related to a general medical condition, such as a paraneoplastic phenomenon among other possibilities. I have explained that remaining on the unit gives us the best opportunity to elucidate the etiology of her presenting symptoms and pursue appropriate workup and management. Patient still persists with her desire for discharge today, and I believe she has unfortunately capacitated to insist upon this. I will discharge her home AGAINST MEDICAL ADVICE in guarded condition given the nature of the discharge. Patient follow- up psychiatrically, and the counselor will provide a referral. Patient should also follow up with PCP, construction checker, oncology and neurology, and I likely would have sought consultations from these specialists had she been willing to remain on the unit. I have counseled the patient regarding warning signs for need to return to the psychiatric emergency room as part of the general safety plan. I have written no prescriptions on discharge. This document serves also as my discharge summary. Discharge Planning AMA discharge today. Request HC Surrog/Guard Advoc?: No Steve Johnston MD Oct 25, 2016 09:16
== END 2016-10-25 17:30 | disposition left against medical advice (07) | DRG 887 ==
LOC: NEPJ 13:21 → NEDA 10-24 17:13 → H270 10-24 18:22
PROVIDERS: ADMIT Psychiatry & Neurology Psychiatry; ATTEND Psychiatry & Neurology Psychiatry
DX: F51.02 Adjustment insomnia (principal); F11.20 Opioid dependence, uncomplicated; R44.3 Hallucinations, unspecified; F32.9 Major depressive disorder, single episode, unspecified; G47.00 Insomnia, unspecified; C53.9 Malignant neoplasm of cervix uteri, unspecified; G44.009 Cluster headache syndrome, unspecified, not intractable; F17.210 Nicotine dependence, cigarettes, uncomplicated
CPT/HCPCS: 80053; 80307; 81001; 85025; 90472; 96372; J1200; J2060; J3486